=== PATIENT | female | born 1975 | race Caucasian/White ===

== ENCOUNTER → 2018-10-06 | Day surgery (SDC) | payer OTHER ==
[~2018-10-06] MED LIST: FENTANYL CITRATE/PF 100MCG/2 ML INJ ONE; HYOSCYAMINE SULFATE 0.5 MG/ML INJ ONE; MIDAZOLAM HCL 2 MG/2 ML VIAL ONE; PROPOFOL IV EMULSION 10 MG/ML 50 ML VIAL ONE
--- OUTSIDE RECORDS SUMMARY | 2018-10-06 08:12 | XMS REPORT ---
Author Author Flor Eldridge [facility] eClinicalWorks Address Unknown Phone Unavailable Care Team Providers Care Systems Test Engineer Name Role Phone Flor Eldridge Unavailable Allergies, Adverse Reactions, Alerts Substance Reaction Event Type N.K.D.A. Info Not Available Non Drug Allergy Problems Problem Type Condition Code Onset Dates Condition Status Assessment Herpes zoster without complication B02.9 Active Medications No Known Medications Vital Signs Date/Time: April 19, 2017 BMI 22.86 Index Weight 125 lbs Height 62 in Cardiac Monitoring Heart Rate 76 /min Blood Pressure Diastolic 68 mm Hg Blood Pressure Systolic 110 mm Hg Results No Known Results Summary Purpose eClinicalWorks Submission
--- OUTSIDE RECORDS SUMMARY | 2018-10-06 08:12 | XMS REPORT ---
Author Author Michelle Okeefe Organization e[employer] Address Unknown Phone Unavailable Care Team Providers Care Processing Tech Name Role Phone Michelle Okeefe CP Unavailable Allergies, Adverse Reactions, Alerts Substance Reaction Event Type N.K.D.A. Info Not Available Non Drug Allergy Problems Problem Type Condition Code Onset Dates Condition Status Assessment Encntr for general adult medical exam w/o abnormal findings Z00.00 Active Assessment Screening for breast cancer Z12.39 Active Assessment Abnormal EKG R94.31 Active Assessment Screening for colon cancer Z12.11 Active Assessment Family history of colon cancer Z80.0 Active Medications No Known Medications Vital Signs Date/Time: Sep 13, 2018 BMI 19.93 Index Weight 109 lbs Height 62 in Cardiac Monitoring Heart Rate 74 /min Blood Pressure Diastolic 82 mm Hg Blood Pressure Systolic 124 mm Hg Results Name Result Date Reference Range Unit Abnormality Flag EKG Summary Purpose eClinicalWorks Submission
--- OUTSIDE RECORDS SUMMARY | 2018-10-06 08:12 | XMS REPORT ---
Author Author Flor Eldridge [facility] e[employer] Address Unknown Phone Unavailable Care Team Providers Care Biological Lab Technician Name Role Phone Flor Eldridge CP Unavailable Allergies No Known Allergies Problems No Known Problems Medications No Known Medications Results No Known Results Summary Purpose eClinicalWorks Submission
--- OUTSIDE RECORDS SUMMARY | 2018-10-06 08:12 | XMS REPORT | Continuity of Care Document ---
Author Author [facility] Interface Address Unknown Phone Unavailable Problems Problem Status Onset Date Classification Date Reported Comments Source Abnormal EKG Active Diagnosis 09/17/2018 [facility] Herpes zoster without complication Active Diagnosis 04/21/2017 [facility] Encntr for general adult medical exam w/o abnormal findings Active Diagnosis 09/14/2018 [facility] Screening for breast cancer Active Diagnosis 09/14/2018 [facility] Screening for colon cancer Active Diagnosis 09/14/2018 [facility] Family history of colon cancer Active Diagnosis 09/14/2018 [facility] Medications Medication Details Route Status Patient Instructions Ordering Provider Order Date Source Valacyclovir HCl 1 tablet Orally Active 1 GM Orally every 8 hrs Jazmyn 04/09/2017 [facility] Allergies, Adverse Reactions, Alerts Substance Category Reaction Severity Reaction type Status Date Reported Comments Source N.K.D.A. Adverse Reaction Info Not Available Adverse Reaction Active 09/13/2018 [facility] Immunizations Immunization Date Given Site Status Last Updated Comments Source Results Order Name Results Value Reference Range Date Interpretation Comments Source Vital Signs Vital Sign Value Date Comments Source Weight 109 09/13/2018 [facility] Height 62 09/13/2018 [facility] Heart Rate 74 09/13/2018 [facility] Diastolic (mm Hg) 82 09/13/2018 [facility] Systolic (mm Hg) 124 09/13/2018 [facility] Weight 125 04/19/2017 [facility] Height 62 04/19/2017 [facility] Heart Rate 76 04/19/2017 [facility] Diastolic (mm Hg) 68 04/19/2017 [facility] Systolic (mm Hg) 110 04/19/2017 [facility] Weight 126 04/09/2017 [facility] Height 62 04/09/2017 [facility] Heart Rate 86 04/09/2017 [facility] Diastolic (mm Hg) 76 04/09/2017 [facility] Systolic (mm Hg) 118 04/09/2017 [facility] Encounters Location Location Details Encounter Type Encounter Number Reason For Visit Attending Provider ADM Date DC Date Status Source Procedures Procedure Code Date Perfomer Comments Source
--- OUTSIDE RECORDS SUMMARY | 2018-10-06 08:12 | XMS REPORT ---
Author Author Flor Eldridge [facility] eClinicalWorks Address Unknown Phone Unavailable Care Team Providers Care Nut Sifter Name Role Phone Flor Eldridge CP Unavailable Allergies, Adverse Reactions, Alerts Substance Reaction Event Type N.K.D.A. Info Not Available Non Drug Allergy Problems Problem Type Condition Code Onset Dates Condition Status Assessment Herpes zoster without complication B02.9 Active Medications Medication Code System Code Instructions Start Date End Date Status Dosage Valacyclovir HCl [facility] [place] [id number] 1 GM Orally every 8 hrs April 09, 2017 April 16, 2017 Active 1 tablet Vital Signs Date/Time: April 09, 2017 BMI 23.04 Index Weight 126 lbs Height 62 in Cardiac Monitoring Heart Rate 86 /min Blood Pressure Diastolic 76 mm Hg Blood Pressure Systolic 118 mm Hg Results No Known Results Summary Purpose eClinicalWorks Submission
--- OUTSIDE RECORDS SUMMARY | 2018-10-06 08:12 | XMS REPORT ---
Author Author Michelle Okeefe Organization e[employer] Address Unknown Phone Unavailable Care Team Providers Care Lease Out Worker Name Role Phone Michelle Okeefe CP Unavailable Allergies No Known Allergies Problems Problem Type Condition Code Onset Dates Condition Status Assessment Abnormal EKG R94.31 Active Medications No Known Medications Results No Known Results Summary Purpose eClinicalWorks Submission
[2018-10-06 12:05] VITALS: BP 106/94
--- NOTE | 2018-10-06 13:45 | Operative Report ---
DATE OF PROCEDURE: October 06, 2018 REFERRING PHYSICIAN: Dr. Rhona Kwan and Dr. Ruba Hearn. PROCEDURE PERFORMED: Colonoscopy and polypectomy. INDICATIONS FOR COLONOSCOPY: Colorectal cancer screening and mother with colon cancer. MEDICATION: Patient was done under MAC. Please see anesthesiologist's note. PROCEDURE: With the patient in the left lateral decubitus position, the flexible fiberoptic Olympus colonoscope was inserted into the rectum with ease and advanced all the way to the cecum. Mucosa overlying the cecum appeared to be within normal limits. One polyp was snared from the proximal ascending colon and polypectomy site was hemoclipped. The rest of the ascending and transverse appeared to be within normal limits. One polyp was hot biopsied from the proximal descending colon and site was hemoclipped also. The rest of the descending, sigmoid and rectum appeared to be within normal limits. The scope was then retroflexed into the distal rectum. Small internal hemorrhoids were noted, none of which was actively bleeding. The scope was then straightened out. It was subsequently withdrawn. Patient tolerated the procedure well. IMPRESSION 1. Ascending colon polyp, snared. Polypectomy site hemoclipped. 2. Descending colon polyp, hot biopsied. Polypectomy site hemoclipped. 3. Internal hemorrhoids, none actively bleeding. PLAN: Follow up histology. Initiate high-fiber and low-fat diet. Initiate a fiber supplement. Patient might benefit from a followup colonoscopy in 3 years. Job#: [id number] RI cc:DO RUBA BAHENA MD
== END | disposition home or self-care (01) ==
LOC: OR 08:08
PROVIDERS: ATTEND Internal Medicine Gastroenterology
DX: Z12.11 Encounter for screening for malignant neoplasm of colon (principal); D12.2 Benign neoplasm of ascending colon; K64.8 Other hemorrhoids; K59.00 Constipation, unspecified; K62.5 Hemorrhage of anus and rectum; Z80.0 Family history of malignant neoplasm of digestive organs
CPT/HCPCS: 45384; 45385; 81025; J1980; J2250; 45378